=== PATIENT | female | born 1995 | race African-American/Black ===

== ENCOUNTER 2020-01-18 00:05 | Inpatient (IN) ==
[2020-01-18] MEDS ORDERED: OXYTOCIN 30 UNITS/500 ML BAG IV PRN ×2 (01:02→07:56)
--- NOTE | 2020-01-18 01:05 | History & Physical Report ---
Date of Service January 18, 2020 Assessment & Plan (1) Substance abuse affecting , antepartum: 24 at 38.6 weeks GA. Labor 1. Fetus: Cat 1 2. Labor: Progressing unaugmented. Will augment as indicated. 3. Vitals: WNL 4. Anxiety/ Depression: Continue home meds 5. Hx substance abuse: UDS pending 6. BUFA: social work post 7. GBS negative (2) Encounter for pre-operative examination: History of Present Illness Primary Care Provider: NO PCP 24yo at 38.6 weeks GA. Presents in active labor. Denies LOF. Good FM. complicated by substance abuse, anxiety/depression, and BUFA. Patient on Abilify/Risperadol. Allergies Allergy/AdvReac Type Severity Reaction Status Date / Time No Known Allergies Allergy Verified 01/13/20 13:50 Home Medications Home Medications Medication Instructions Recorded Confirmed Type folic acid 1 tab PO DAILY 09/22/19 01/18/20 History melatonin 1 tab PO DAILY 09/22/19 01/18/20 History aripiprazole 20 mg tablet 20 mg PO DAILY 10/08/19 01/13/20 History prenat.vits,reanna,scz-gqzp-sztdu 1 tab PO DAILY 10/08/19 01/18/20 History risperidone 1 tab PO DAILY 01/06/20 01/18/20 History Patient History Medical History Anxiety Depression Drug abuse Drug psychosis Heart murmur Hx of migraines MRSA (methicillin resistant Staphylococcus aureus) UTI (urinary tract infection) Walking pneumonia Surgical History Status post skin graft Family History Mother Diabetes Social History Preferred Language: [place] Communication Ability: Effective 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 Required: No Beliefs That Will Affect Care: None marital status: Single marital status details: 2 potential fob's-neither involved Current Living Situation: Parent Current Living Situation Comment: lives with parents, dog, barn cats current occupational status: unemployed Feels Safe at Home: Yes Safety Concerns: Feels Safe At This Time Smoking Status: Former smoker Smoking End Date: jul 2019 ; Hx Alcohol Use: No Hx Substance Use: Yes substance use type: marijuana Substance Use Type Other:: synthetic till jul 24, 2019 Physical Exam Genitourinary: OB Exam Abdomen: + vertex Manual OB Exam: + cervical dilation 4 cm, + cervical effacement 100% and + station -2 OB Exam Monitor Tracing: + external FHT monitor used, + external uterine monitor used, + category I and + normal FHT variability; no category III, no early decelerations present, no late decelerations present and no variable decelerations Results & Data Vital Signs (Past 12 Hours) Vital Signs Temp Pulse Resp BP 01/18/20 00:25 36.4 C L 69 18 121/64 Coding Level of Care Code None Diagnoses Substance abuse affecting , antepartum O99.320 Encounter for pre-operative examination Z01.818
[2020-01-18] MEDS: LACTATED RINGER'S 1,000 ML IV PRN ×2 (01:25→02:20)
[2020-01-18] MEDS ORDERED: ePHEDrine sulfate 50 MG/ML AMP ONE (01:25)
[2020-01-18] MEDS ORDERED: fentaNYL citrate 100 MCG/2 ML VIAL ONE (01:26)
[2020-01-18] MEDS ORDERED: BUPIVACAINE 0.25% 30 ML VIAL ONE (01:26)
[2020-01-18] MEDS ORDERED: fentaNYL 2MCG/ML ROPIV 1.25MG/ML 100 ML BAG EPI ONE (01:26)
[2020-01-18 01:58] LABS: Hematocrit (blood only) 35.7 % (37-47); Hemoglobin 12.2 g/dL (12.0-16.0); Mean Corpuscular Hemoglobin 33.1 pg (25-34); Mean Corpuscular Hgb Conc 34.2 g/dL (32-36); Mean Corpuscular Volume 96.7 fL (80-100); Mean Platelet Volume 12.9 fL (7.4-10.4); Platelet Count 123 K/uL (130-400); RDW Coefficient of Variation 12.9 % (11.5-14.5); RDW Standard Deviation 45.6 fL (36.4-46.3); Red Blood Count 3.69 M/uL (4.2-5.4); White Blood Count 13.86 K/uL (4.8-10.8)
[2020-01-18 01:59] LABS: Platelet Estimate Normal (Normal)
--- NOTE | 2020-01-18 02:01 | Anesthesiology Consultation ---
Date of Service January 18, 2020 Assessment & Plan (1) Encounter for pre-operative examination: Chart Review Chart Review: Acceptable Risk for Labor Epidural History Height/Weight Height: 5 ft 5 in Weight: 96.162 kg Allergies Allergy/AdvReac Type Severity Reaction Status Date / Time No Known Allergies Allergy Verified 01/13/20 13:50 Medications Home Medications Medication Instructions Recorded Confirmed Last Taken folic acid 1 tab PO DAILY 09/22/19 01/18/20 01/17/20 melatonin 1 tab PO DAILY 09/22/19 01/18/20 01/17/20 aripiprazole 20 mg tablet 20 mg PO DAILY 10/08/19 01/13/20 01/17/20 21:00 prenat.vits,reanna,duk-jwaf-fbsum 1 tab PO DAILY 10/08/19 01/18/20 01/17/20 risperidone 1 tab PO DAILY 01/06/20 01/18/20 01/17/20 Active Medications Generic Name Dose Route Start Last Admin Trade Name Freq PRN Reason Stop Dose Admin Lactated Ringer's 1,000 mls @ 125 mls/hr 01/18/20 01:02 01/18/20 01:25 Lr IV 01/20/20 01:01 999 mls/hr .Q8H PRN Administration L&D Protocol Protocol Past Medical History Medical History Anxiety Depression Drug abuse Drug psychosis Heart murmur Hx of migraines MRSA (methicillin resistant Staphylococcus aureus) UTI (urinary tract infection) Walking pneumonia Past Family History Family History Mother Diabetes Past Surgical History Surgical History Status post skin graft Social History Smoking Status: Former smoker Smoking End Date: jul 2019 Hx Alcohol Use: No Hx Substance Use: Yes substance use type: marijuana Substance Use Type Other:: synthetic till jul 24, 2019 Physical Exam Vital Signs Last Vital Signs Temp 36.4 C L 01/18/20 00:25 Pulse 69 01/18/20 00:25 Resp 18 01/18/20 00:25 BP 121/64 01/18/20 00:25 Testing Laboratory Results 01/18/20 01:31
[2020-01-18 02:16] LABS: Amphetamines+Metham, Urine Neg (Neg); Barbiturates, Urine Neg (Neg); Benzodiazepine, Urine Neg (Neg); Cocaine, Urine Neg (Neg); MDMA (Ecstacy), Urine Neg (Neg); Methadone, Urine Neg (Neg); Opiate, Urine Neg (Neg); Phencyclidine, Urine Neg (Neg)
[2020-01-18] MEDS ORDERED: ONDANSETRON INJ 2 MG/ML 2 ML VIAL IV PRN (02:22)
[2020-01-18] MEDS ORDERED: NALOXONE HCL 0.4 MG/1 ML VIAL/CARP IV PRN (02:22)
[2020-01-18] MEDS ORDERED: NALOXONE HCL 1 MG in SODIUM CHLORIDE 0.9% 1000ML 1,000 ML IV PRN (02:22)
[2020-01-18] MEDS ORDERED: fentaNYL 2MCG/ML ROPIV 1.25MG/ML 100 ML BAG EPI PRN (02:22)
[2020-01-18] MEDS ORDERED: ePHEDrine sulfate 50 MG/ML AMP IV PRN (02:22)
[2020-01-18] MEDS ORDERED: DIPHTHERIA/TETANUS/PERTUSSIS 0.5 ML SYR/VIAL IM ONE (07:56)
[2020-01-18] MEDS ORDERED: BENZOCAINE 20% AER SPR 82.5 GM CAN EXT PRN (07:56)
[2020-01-18] MEDS ORDERED: SUPERCREAM 0.870% 15 GM JAR EXT PRN (07:56)
[2020-01-18] MEDS ORDERED: HYDROCORTISONE ACETATE 25 MG SUPP PR PRN (07:56)
[2020-01-18] MEDS ORDERED: bisacodyL 10 MG SUPP PR PRN (07:56)
[2020-01-18] MEDS ORDERED: IBUPROFEN 600 MG TAB PO PRN (07:56)
[2020-01-18] MEDS ORDERED: ACETAMINOPHEN 325 MG TAB PO PRN (07:56)
[2020-01-18] MEDS: DOCUSATE SODIUM 100 MG CAP PO SCH ×2 (08:21→20:51)
[2020-01-18] MEDS: PRENATAL VITAMIN 1 TAB PO SCH (08:23)
[2020-01-18] MEDS ORDERED: ARIPiprazole 10 MG TAB PO SCH (09:30)
[2020-01-18] MEDS ORDERED: RISPERIDONE PO SCH (09:30)
--- NOTE | 2020-01-18 09:52 | Delivery Summary ---
DATE OF OPERATION: 01/18/2020 NOTICE TO RECEIVING CONSTITUTION PARTY/AGENCY This information is strictly Confidential and protected under [place] law. [place] law prohibits you from making any further disclosure of this information unless further disclosure is expressly permitted by the written consent of the person to whom it pertains or is authorized by law. A general authorization for the release of medical or other information is not sufficient for this purpose. Hospital accepts no responsibility if the information is made available to any other person, INCLUDING THE PATIENT. PROCEDURE: Normal spontaneous vaginal delivery with periurethral laceration repair. SURGEON: Sae Lovett MD PREOPERATIVE DIAGNOSES: 1. Single intrauterine at term. 2. Labor. 3. History of substance abuse. 4. Anxiety and depression. 5. Baby up for adoption. POSTOPERATIVE DIAGNOSES: Same, status post delivery. ESTIMATED BLOOD LOSS: 200 mL DRAINS: None. FLUIDS: Continuous lactated ringer. URINE OUTPUT: Not measured. COMPLICATIONS: None. FINDINGS: Viable female with weight pending, Apgars of 8 and 9 at 1 and 5 minutes respectively. INDICATIONS: Ms. Anna is a 24-year-old G1, P0, admitted at term in active labor. The patient progressed in labor without augmentation. She underwent spontaneous rupture of membranes for thick meconium. She received an epidural for anesthesia. The patient continued to progress to complete-complete +2 station, at which time she felt the urge to push. DESCRIPTION OF PROCEDURE: The patient progressed to 10 cm dilated, 100% effaced, +2 station, pushed over intact perineum with epidural anesthesia and delivered a viable female with weight and Apgars as noted above. Head of the delivered in ASHLI position, rest into right transverse. No nuchal cord was noted. Body and shoulders quickly followed. was noted to have several cries on delivery due to the meconium and lack of vigor; however the cord was double clamped and cut before a full 30-second delayed cord clamp could be achieved. The was taken to the awaiting nursery staff and was noted to be vigorous soon after being delivered to the warmer. Cord blood was then obtained. Attention was then turned to deliver the placenta, delivered intact, 3-vessel cord, gentle cord traction. On inspection of the perineum, vagina, and cervix, there was noted to be a periurethral laceration which was repaired with 3-0 Vicryl interrupted stitch. Needle, sponge and instrument counts were correct at the completion of the case. Both mother and stable in the immediate post-delivery period. I attest to the content of the Intraoperative Record and any orders documented therein. Any exception s are noted below.
--- NOTE | 2020-01-18 10:03 | Anesthesia Procedure Note ---
Date of Service January 18, 2020 Anesthesia Post Epidural Note Vital Signs Vital Signs: Temp Pulse Resp BP Pulse Ox 36.5 C 61 20 129/70 98 01/18/20 07:26 01/18/20 09:49 01/18/20 09:20 01/18/20 09:49 01/18/20 07:32 Notes Mental Status: alert / awake / arousable and participated in evaluation Patient Amnestic to Procedure: Yes Nausea / Vomiting: adequately controlled Pain: adequately controlled Airway Patency, RR, SpO2: stable & adequate BP & HR: stable & adequate Hydration State: stable & adequate Anesthetic Complications: no major complications apparent and Pt Satisfied with anesthetic care
--- NOTE | 2020-01-18 10:13 | Anesthesia Procedure Note ---
Date of Service January 18, 2020 Anesthesia Post Epidural Note Vital Signs Vital Signs: Temp Pulse Resp BP Pulse Ox 36.5 C 80 20 127/71 98 01/18/20 07:26 01/18/20 10:03 01/18/20 09:20 01/18/20 10:03 01/18/20 07:32 Notes Mental Status: alert / awake / arousable and participated in evaluation Patient Amnestic to Procedure: Yes Nausea / Vomiting: adequately controlled Pain: adequately controlled Airway Patency, RR, SpO2: stable & adequate BP & HR: stable & adequate Hydration State: stable & adequate Anesthetic Complications: no major complications apparent and Pt Satisfied with anesthetic care
--- NOTE | 2020-01-18 10:14 | Anesthesia Procedure Note ---
Date of Service January 18, 2020 Anesthesia Post Epidural Note Vital Signs Vital Signs: Temp Pulse Resp BP Pulse Ox 36.5 C 80 20 127/71 98 01/18/20 07:26 01/18/20 10:03 01/18/20 09:20 01/18/20 10:03 01/18/20 07:32 Notes Mental Status: alert / awake / arousable and participated in evaluation Nausea / Vomiting: adequately controlled Pain: adequately controlled Airway Patency, RR, SpO2: stable & adequate BP & HR: stable & adequate Hydration State: stable & adequate
[2020-01-18] MEDS ORDERED: Nursing to Pharmacy Communication ONE (14:10)
[2020-01-18] MEDS: ARIPiprazole 10 MG TAB PO SCH (20:51)
[2020-01-19] MEDS ORDERED: CALCIUM CARBONATE 500 MG CHEWABLE TAB PO PRN (02:18)
[2020-01-19 06:16] LABS: Hematocrit (blood only) 34.3 % (37-47); Hemoglobin 11.5 g/dL (12.0-16.0)
--- NOTE | 2020-01-19 07:55 | Obstetrical Progress Note ---
Date of Service January 19, 2020 Assessment & Plan (1) Substance abuse affecting , antepartum: PPD 1 Cont current care Subjective Ambulation: ambulating normally Voiding: no voiding problems Passing Gas:: Yes Diet Tolerance:: regular diet Lochia:: Small Current Pain Level(1-10): 0 Physical Exam Constitutional WD/WN, vitals as above Gastrointestinal (Abdomen) normal bowel sounds, soft, nontender, no hepatosplenomegaly Genitourinary normal external appearance Results & Data Vital Signs (Past 12 Hours) Vital Signs Temp Pulse Pulse Resp BP 01/19/20 03:45 97.9 F 77 16 104/65 01/19/20 00:05 98.1 F 80 16 119/76
[2020-01-19] MEDS: PRENATAL VITAMIN 1 TAB PO SCH (09:37)
[2020-01-19] MEDS: DOCUSATE SODIUM 100 MG CAP PO SCH ×2 (09:37→20:56)
[2020-01-19] MEDS ORDERED: bisacodyL 5 MG TABEC PO SCH (20:00)
[2020-01-19] MEDS: ARIPiprazole 10 MG TAB PO SCH (20:44)
[2020-01-20] MEDS: DOCUSATE SODIUM 100 MG CAP PO SCH (07:56)
[2020-01-20] MEDS: PRENATAL VITAMIN 1 TAB PO SCH (07:56)
--- NOTE | 2020-01-20 09:12 | Obstetrical Progress Note ---
Date of Service January 20, 2020 Assessment & Plan (1) state: Routine pp care, discharge instructions reviewed. Subjective Ambulation: ambulating normally Voiding: no voiding problems Passing Gas:: Yes Diet Tolerance:: regular diet Lochia:: Small Feeding Type:: breast feeding Physical Exam Constitutional WD/WN, vitals as above Eyes PERRL, conjunctivae normal, anicteric sclerae Neck normal visual inspection Respiratory normal respiratory effort and able to speak in complete sentences; no respiratory distress and no labored breathing Cardiovascular Rate/Rhythm: regular rate and regular rhythm Extremities: no edema Chest (Breasts) Chest: normal inspection of chest Gastrointestinal (Abdomen) Inspection/Auscultation: abdomen normal to inspection Soft, postgravid Psychiatric A+Ox3, euthymic affect Genitourinary OB Exam Abdomen: + fundal height Fundus: + firm and + relation to umbilicus (fundus just below umbilicus); not tender Results & Data Vital Signs (Past 12 Hours) Vital Signs Temp Pulse Resp BP Pulse Ox 01/20/20 08:00 97.9 F 75 16 113/72 98 01/20/20 00:05 97.5 F L 80 18 123/70
== END 2020-01-20 10:13 | disposition home or self-care (01) | DRG 807 ==
LOC: OPB 00:05 → 4S1 00:21 → 4S2 11:36